=== PATIENT | female | born 1990 | race Caucasian/White ===

== ENCOUNTER → 2020-05-06 | Outpatient (CLI) | payer OTHER ==
[2020-05-06 17:11] LABS: HCG, SERUM QUANTITATIVE < 1.0 MIU/ML
[2020-05-06 17:35] LABS: HCG, SERUM QUALITATIVE NEGATIVE (NEGATIVE)
== END ==
LOC: M LAB 16:19
PROVIDERS: ATTEND Nurse Practitioner Adult Health
DX: N91.2 Amenorrhea, unspecified (principal)

== ENCOUNTER 2020-05-14 11:00 | Emergency (ER) | payer OTHER ==
[~2020-05-14] VITALS: Ht 160 cm; Wt 76.4 kg
[2020-05-14] MEDS ORDERED: METR-265 PO (11:19)
[2020-05-14 11:45] LABS: BASO % 0.4 % (0.0-1.0); EOS # 0.2 10^3/uL (0.0-0.5); EOS % 1.6 % (0.0-3.0); HEMATOCRIT 42.1 % (36.0-47.0); HEMOGLOBIN 14.1 g/dl (12.0-15.5); LYMPH # 1.6 10^3/uL (1.5-5.0); LYMPH % 15.5 % (24.0-44.0); MEAN CORPUSCULAR HEMOGLOBIN 30.2 pg (27.0-33.0); MEAN CORPUSCULAR HGB CONC 33.5 g/dl (32.0-36.5); MEAN CORPUSCULAR VOLUME 90.1 fl (80.0-96.0); MONO # 0.6 10^3/uL (0.0-0.8); MONO % 5.5 % (0.0-5.0); NEUTROPHILS # 7.6 10^3/uL (1.5-8.5); NEUTROPHILS % 76.6 % (36.0-66.0); PLATELET COUNT, AUTOMATED 303 10^3/uL (150-450); RED BLOOD COUNT 4.67 10^6/uL (4.00-5.40)
[2020-05-14] MEDS ORDERED: NS 1,000 ML IV ONE ×2 (12:00)
[2020-05-14 12:14] LABS: ALBUMIN 3.7 GM/DL (3.2-5.2); ALT/SGPT 27 U/L (12-78); BILIRUBIN,DIRECT < 0.1 MG/DL (0.0-0.2); BILIRUBIN,TOTAL 0.5 MG/DL (0.2-1.0); LIPASE 73 U/L (73-393); TOTAL PROTEIN 6.9 GM/DL (6.4-8.2)
[2020-05-14] MEDS ORDERED: ISOVUE-370 76% 100ML VIAL As Ordered ONE (12:21)
--- NOTE | 2020-05-14 13:00 | REP ---
CT abdomen/pelvis: 05/14/2020. Indication: Abdominal pain. Diarrhea. Technique: Axial images of the abdomen/pelvis were performed following IV iodinated contrast administration with coronal and sagittal reconstructions provided. Comparison: None. Findings: Follow-up thickening is noted within the colon particularly involving the cecum. No intraperitoneal fluid collections are present. There is no evidence of free intraperitoneal air. No significant vascular abnormalities are detected. The kidneys, liver and spleen are unremarkable. The visualized lungs are clear. Impression: Findings most consistent with colitis/pseudomembranous colitis. Please correlate clinically. Electronically Signed by Teofilo Van DO 05/14/2020 12:52 P
[2020-05-14] MEDS ORDERED: VANC125C3 PO (13:25)
[2020-05-14 13:35] VITALS: BP 123/86
[2020-05-14 17:12] LABS: CLOSTRIDIUM DIFFICILE PCR NEGATIVE (NEGATIVE)
== END 2020-05-14 13:43 | disposition home or self-care (01) ==
LOC: M ED 11:00
DX: A04.72 Enterocolitis due to Clostridium difficile, not specified as recurrent (principal); Z79.2 Long term (current) use of antibiotics; Z87.440 Personal history of urinary (tract) infections
CPT/HCPCS: 74177; 80047; 80076; 81001; 83690; 84702; 85025; 87086; 87493; 96360; 96361; 99284; Q9967

== ENCOUNTER → 2020-09-07 | Outpatient (CLI) | payer OTHER ==
[~2020-09-07] MED LIST: METR-265 PO; VANC125C3 PO
[2020-09-07 10:00] LABS: BASO % 0.5 % (0.0-1.0); EOS # 0.1 10^3/uL (0.0-0.5); HEMATOCRIT 40.2 % (36.0-47.0); LYMPH # 1.3 10^3/uL (1.5-5.0); LYMPH % 22.3 % (24.0-44.0); MEAN CORPUSCULAR HEMOGLOBIN 29.9 pg (27.0-33.0); MEAN CORPUSCULAR HGB CONC 32.3 g/dl (32.0-36.5); MEAN CORPUSCULAR VOLUME 92.4 fl (80.0-96.0); MONO # 0.3 10^3/uL (0.0-0.8); MONO % 5.2 % (0.0-5.0); NEUTROPHILS # 4.1 10^3/uL (1.5-8.5); NEUTROPHILS % 70.8 % (36.0-66.0); PLATELET COUNT, AUTOMATED 270 10^3/uL (150-450); RED BLOOD COUNT 4.35 10^6/uL (4.00-5.40); WHITE BLOOD COUNT 5.7 10^3/uL (4.0-10.0)
[2020-09-07 10:54] LABS: ALBUMIN 3.8 GM/DL (3.2-5.2); ALT/SGPT 23 U/L (12-78); BILIRUBIN,TOTAL 0.4 MG/DL (0.2-1.0); BLOOD UREA NITROGEN 16 MG/DL (7-18); CALCIUM LEVEL 8.8 MG/DL (8.5-10.1); CARBON DIOXIDE LEVEL 25 MEQ/L (21-32); CHLORIDE LEVEL 108 MEQ/L (98-107); CREATININE FOR GFR 0.71 MG/DL (0.55-1.30); FERRITIN 9 NG/ML (8-252); GLOMERULAR FILTRATION RATE > 60.0 (>60); GLUCOSE, FASTING 85 MG/DL (70-100); IRON (FE) 46 UG/DL (50-170); PERCENT SATURATION 13.9 % (13.2-45.0); POTASSIUM SERUM 4.7 MEQ/L (3.5-5.1); SODIUM LEVEL 139 MEQ/L (136-145); TOTAL IRON BINDING CAPACITY 332 UG/DL (250-450); TOTAL PROTEIN 7.4 GM/DL (6.4-8.2)
== END ==
LOC: M LAB 07:41
PROVIDERS: ATTEND Physician Assistant
DX: N97.9 Female infertility, unspecified (principal)

== ENCOUNTER → 2020-09-20 | Outpatient (CLI) | payer OTHER ==
--- NOTE | 2020-09-20 13:57 | REP ---
INDICATION: BREAK THROUGH BLEEDING, INFERTILITY. COMPARISON: None. TECHNIQUE: Transabdominal and transvaginal scanning were performed. FINDINGS: Uterine dimensions are normal at 9.0 x 3.9 x 4.7 cm. Endometrial echo is 6 mm thick and centrally placed. No free fluid is seen in the cul-de-sac. The bladder measures 4.9 x 6.8 x 8.5 cm. The right ovary has dimensions of 2.4 x 2.0 x 2.1 cm. The left ovary dimensions are normal as well at 3.8 x 2.2 x 2.8 cm. . The cervix appears somewhat bulky. IMPRESSION: Somewhat bulky appearing cervix. Otherwise negative pelvic ultrasound. <Electronically signed by Scooter Fisher > 09/20/20 [id number]
== END ==
LOC: M RAD 13:00
PROVIDERS: ATTEND Physician Assistant
DX: N97.9 Female infertility, unspecified (principal)

== ENCOUNTER → 2020-10-03 | Outpatient (CLI) | payer OTHER ==
[2020-10-03 08:49] LABS: BLOOD UREA NITROGEN 15 MG/DL (7-18); CALCIUM LEVEL 8.6 MG/DL (8.5-10.1); CARBON DIOXIDE LEVEL 24 MEQ/L (21-32); CHLORIDE LEVEL 109 MEQ/L (98-107); CHOLESTEROL LEVEL 211 MG/DL (<200); CHOLESTEROL RISK RATIO 3.907 (<5); CREATININE FOR GFR 0.77 MG/DL (0.55-1.30); GLOMERULAR FILTRATION RATE > 60.0 (>60); GLUCOSE, FASTING 90 MG/DL (70-100); GLUCOSE,RANDOM 90 MG/DL (LESS THAN 200); HDL CHOLESTEROL 54 MG/DL (>40); LDL CHOLESTEROL 142 MG/DL (<100); NON-HDL-C 157 MG/DL; POTASSIUM SERUM 4.4 MEQ/L (3.5-5.1); SODIUM LEVEL 139 MEQ/L (136-145); TRIGLYCERIDES LEVEL 76 MG/DL (<150); URIC ACID 4.1 MG/DL (2.6-6.0)
[2020-10-03 10:28] LABS: HEMOGLOBIN A1c 5.1 %
[2020-10-03 10:53] LABS: LUTEINIZING HORMONE 11.8 mIU/mL; TESTOSTERONE 20 NG/DL (14-76)
[2020-10-03 10:56] LABS: FOLLICLE STIMULATING HORMONE 3.1 mIU/mL
[2020-10-08 13:07] LABS: INSULIN LEVEL 9.6 uIU/mL (2.6-24.9)
== END ==
LOC: M LAB 07:29
PROVIDERS: ATTEND Obstetrics & Gynecology
DX: N97.9 Female infertility, unspecified (principal)

== ENCOUNTER → 2020-10-26 | Outpatient (REF) | payer OTHER | LOC: M LAB REF 17:18 | PROVIDERS: ATTEND Physician Assistant | DX: N39.0 Urinary tract infection, site not specified (principal) ==

== ENCOUNTER → 2021-03-22 | Outpatient (CLI) | payer OTHER ==
[2021-03-22 14:51] LABS: BASO # 0.1 10^3/uL (0.0-0.2); BASO % 0.7 % (0.0-1.0); EOS # 0.1 10^3/uL (0.0-0.5); EOS % 1.5 % (0.0-3.0); HEMATOCRIT 40.7 % (36.0-47.0); HEMOGLOBIN 13.5 g/dl (12.0-15.5); LYMPH # 2.3 10^3/uL (1.5-5.0); LYMPH % 31.4 % (24.0-44.0); MEAN CORPUSCULAR HEMOGLOBIN 30.1 pg (27.0-33.0); MEAN CORPUSCULAR HGB CONC 33.2 g/dl (32.0-36.5); MEAN CORPUSCULAR VOLUME 90.8 fl (80.0-96.0); MONO # 0.5 10^3/uL (0.0-0.8); NEUTROPHILS # 4.3 10^3/uL (1.5-8.5); NEUTROPHILS % 58.8 % (36.0-66.0); PLATELET COUNT, AUTOMATED 274 10^3/uL (150-450); RED BLOOD COUNT 4.48 10^6/uL (4.00-5.40); WHITE BLOOD COUNT 7.3 10^3/uL (4.0-10.0)
--- NOTE | 2021-03-22 15:23 | REP ---
INDICATION: PREG, POSSIBLE INCOMPLETE MISCARRIAGE, LAB 1ST THEN US COMPARISON: None. TECHNIQUE: Transabdominal and transvaginal 1st trimester obstetrical ultrasound with color Doppler evaluation. FINDINGS: Normal anteverted uterus measures 9.2 x 3.6 x 5.9 cm. The endometrial complex measures 3.4 mm thickness without decidual reaction or intrauterine . The bilateral ovaries are normal in appearance and vascularity without torsion. Right ovary measures 3.8 x 2.4 x 2.4 cm (RI 0.66). Left ovary measures 3.7 x 2.2 x 3.0 cm (RI 0.60). No pelvic fluid or adnexal mass lesion. IMPRESSION: No evidence for intrauterine . Normal appearance to the uterus and bilateral maternal ovaries. Consider correlation with serial HCG levels and repeat ultrasound as necessary. <Electronically signed by Chaparro Johnson > 03/22/21 [id number]
== END ==
LOC: M RAD 14:23
PROVIDERS: ATTEND Physician Assistant
DX: O03.39 Incomplete spontaneous abortion with other complications (principal)

== ENCOUNTER → 2023-06-24 | Outpatient (REF) | payer OTHER | LOC: M SFHCWAGY 13:21 | PROVIDERS: ATTEND Nurse Practitioner Family | DX: Z12.4 Encounter for screening for malignant neoplasm of cervix (principal) | CPT/HCPCS: 87624; G0123 ==

== ENCOUNTER → 2023-07-03 | Outpatient (CLI) | payer BC, OTHER ==
[2023-07-03 08:09] LABS: BASO # 0.1 10^3/uL (0.0-0.2); BASO % 0.7 % (0.0-1.0); EOS # 0.1 10^3/uL (0.0-0.5); EOS % 1.5 % (0.0-3.0); HEMATOCRIT 43.5 % (36.0-47.0); HEMOGLOBIN 14.1 g/dl (12.0-15.5); LYMPH # 1.7 10^3/uL (1.5-5.0); MEAN CORPUSCULAR HEMOGLOBIN 29.7 pg (27.0-33.0); MEAN CORPUSCULAR HGB CONC 32.4 g/dl (32.0-36.5); MEAN CORPUSCULAR VOLUME 91.6 fl (80.0-96.0); MONO # 0.4 10^3/uL (0.0-0.8); MONO % 5.6 % (2.0-8.0); NEUTROPHILS % 68.7 % (36.0-66.0); PLATELET COUNT, AUTOMATED 296 10^3/uL (150-450); RED BLOOD COUNT 4.75 10^6/uL (4.00-5.40); WHITE BLOOD COUNT 7.3 10^3/uL (4.0-10.0)
[2023-07-03 08:24] LABS: HEMOGLOBIN A1c 5.4 % (4.0-6.0)
[2023-07-03 08:42] LABS: THYROID STIMULATING HORMONE 4.375 uIU/ML (0.55-4.78); TOTAL 25(OH) VITAMIN D 28.8 NG/ML (20.0-100.0)
[2023-07-03 08:43] LABS: FOLATE 17.7 NG/ML (>5.4)
[2023-07-03 08:44] LABS: ALBUMIN 3.8 G/DL (3.2-5.2); ALKALINE PHOSPHATASE 90 U/L (46-116); ALT/SGPT 23 U/L (7.0-40); AST/SGOT 14 U/L (<34); BILIRUBIN,TOTAL 0.7 MG/DL (0.3-1.2); BLOOD UREA NITROGEN 14 MG/DL (9-23); CALCIUM LEVEL 9.1 MG/DL (8.5-10.1); CARBON DIOXIDE LEVEL 25 MMOL/L (20-31); CHLORIDE LEVEL 106 MMOL/L (98-107); CHOLESTEROL LEVEL 240 MG/DL (<200); CHOLESTEROL RISK RATIO 4.69 (<5); CREATININE FOR GFR 0.74 MG/DL (0.55-1.30); FOLLICLE STIMULATING HORMONE 2.6 mIU/ML; GLOMERULAR FILTRATION RATE > 60.0 (>60); GLUCOSE, FASTING 92 MG/DL (60-100); HDL CHOLESTEROL 51.1 MG/DL (>40); IRON (FE) 96 UG/DL (50-170); LDL CHOLESTEROL 170.1 MG/DL (<100); NON-HDL-C 188.9 MG/DL; PERCENT SATURATION 31.8 % (13.2-45.0); POTASSIUM SERUM 4.4 MMOL/L (3.5-5.1); SODIUM LEVEL 139 MMOL/L (136-145); TOTAL IRON BINDING CAPACITY 302 UG/DL (250-425); TRIGLYCERIDES LEVEL 94 MG/DL (<150)
[2023-07-03 08:45] LABS: FERRITIN 28.3 NG/ML (7.3-270.7); FREE T4 0.99 NG/DL (0.89-1.76); LUTEINIZING HORMONE 5.4 mIU/ML
[2023-07-03 08:46] LABS: VITAMIN B12 LEVEL 411 PG/ML (211-911)
== END ==
LOC: M LAB 07:31
PROVIDERS: ATTEND Physician Assistant
DX: Z13.29 Encounter for screening for other suspected endocrine disorder (principal); Z13.220 Encounter for screening for lipoid disorders

== ENCOUNTER → 2024-02-17 | Outpatient (CLI) | payer BC ==
[2024-02-17 10:13] LABS: BASO # 0.1 10^3/uL (0.0-0.2); BASO % 1.3 % (0.0-1.0); EOS # 0.1 10^3/uL (0.0-0.5); EOS % 1.3 % (0.0-3.0); HEMATOCRIT 41.1 % (36.0-47.0); HEMOGLOBIN 13.6 g/dl (12.0-15.5); LYMPH # 1.6 10^3/uL (1.5-5.0); LYMPH % 31.1 % (24.0-44.0); MEAN CORPUSCULAR HEMOGLOBIN 30.2 pg (27.0-33.0); MEAN CORPUSCULAR HGB CONC 33.1 g/dl (32.0-36.5); MEAN CORPUSCULAR VOLUME 91.1 fl (80.0-96.0); MONO # 0.4 10^3/uL (0.0-0.8); MONO % 6.6 % (2.0-8.0); NEUTROPHILS # 3.1 10^3/uL (1.5-8.5); NEUTROPHILS % 59.3 % (36.0-66.0); PLATELET COUNT, AUTOMATED 286 10^3/uL (150-450); RED BLOOD COUNT 4.51 10^6/uL (4.00-5.40); WHITE BLOOD COUNT 5.3 10^3/uL (4.0-10.0)
[2024-02-17 10:47] LABS: ALBUMIN 4.1 G/DL (3.2-5.2); ALKALINE PHOSPHATASE 113 U/L (46-116); ALT/SGPT 28 U/L (7.0-40); AST/SGOT 17 U/L (<34); BILIRUBIN,TOTAL 0.4 MG/DL (0.3-1.2); BLOOD UREA NITROGEN 14 MG/DL (9-23); CALCIUM LEVEL 9.5 MG/DL (8.5-10.1); CARBON DIOXIDE LEVEL 27 MMOL/L (20-31); CHLORIDE LEVEL 110 MMOL/L (98-107); CREATININE FOR GFR 0.73 MG/DL (0.55-1.30); GLOMERULAR FILTRATION RATE > 60.0 (>60); GLUCOSE, FASTING 100 MG/DL (60-100); IRON (FE) 52 UG/DL (50-170); PERCENT SATURATION 16.9 % (13.2-45.0); POTASSIUM SERUM 4.9 MMOL/L (3.5-5.1); SODIUM LEVEL 140 MMOL/L (136-145); TOTAL IRON BINDING CAPACITY 308 UG/DL (250-425)
[2024-02-17 10:48] LABS: FREE T4 1.13 NG/DL (0.89-1.76); THYROID STIMULATING HORMONE 1.943 uIU/ML (0.55-4.78)
[2024-02-17 10:49] LABS: FERRITIN 12.8 NG/ML (7.3-270.7)
[2024-02-17 11:05] LABS: HEMOGLOBIN A1c 5.3 % (4.0-6.0)
== END ==
LOC: M PLALAB 08:19
PROVIDERS: ATTEND Nurse Practitioner Family
DX: N92.0 Excessive and frequent menstruation with regular cycle (principal)

== ENCOUNTER → 2024-02-24 | Outpatient (CLI) | payer BC | LOC: M RAD 12:25 | PROVIDERS: ATTEND Nurse Practitioner Family | DX: N92.0 Excessive and frequent menstruation with regular cycle (principal) ==

== ENCOUNTER 2024-05-16 10:18 | Emergency (ER) | payer OTHER, BC ==
[~2024-05-16] VITALS: Ht 160 cm; Wt 87.7 kg
[2024-05-16 10:54] LABS: BASO % 0.5 % (0.0-1.0); EOS # 0.1 10^3/uL (0.0-0.5); EOS % 0.9 % (0.0-3.0); HEMATOCRIT 40.9 % (36.0-47.0); HEMOGLOBIN 13.8 g/dl (12.0-15.5); LYMPH # 1.5 10^3/uL (1.5-5.0); LYMPH % 18.5 % (24.0-44.0); MEAN CORPUSCULAR HEMOGLOBIN 30.4 pg (27.0-33.0); MEAN CORPUSCULAR HGB CONC 33.7 g/dl (32.0-36.5); MEAN CORPUSCULAR VOLUME 90.1 fl (80.0-96.0); MONO # 0.5 10^3/uL (0.0-0.8); MONO % 5.6 % (2.0-8.0); NEUTROPHILS # 6.1 10^3/uL (1.5-8.5); PLATELET COUNT, AUTOMATED 282 10^3/uL (150-450); RED BLOOD COUNT 4.54 10^6/uL (4.00-5.40); WHITE BLOOD COUNT 8.2 10^3/uL (4.0-10.0)
[2024-05-16 11:13] LABS: APPEARANCE, URINE CLEAR (CLEAR); BACTERIA, URINE AUTO 1+ (NEGATIVE); BILIRUBIN, URINE AUTO NEGATIVE (NEGATIVE); BLOOD, URINE BLOOD 3+ (NEGATIVE); COLOR, URINE STRAW (YELLOW); GLUCOSE, URINE (UA) AUTO NEGATIVE (NEGATIVE); KETONE, URINE AUTO NEGATIVE (NEGATIVE); LEUKOCYTE ESTERASE, URINE AUTO NEGATIVE (NEGATIVE); NITRITE, URINE AUTO NEGATIVE (NEGATIVE); PROTEIN, URINE AUTO NEGATIVE (NEGATIVE); RBC, URINE AUTO 19 /HPF (0-3); SPECIFIC GRAVITY URINE AUTO 1.003 (1.002-1.035); SQUAMOUS EPITHELIAL CELL UR AU 0 /HPF (0-6); UROBILINOGEN, URINE AUTO 0.2 mg/dL (0.0-2.0); WBC, URINE AUTO 1 /HPF (0-3)
[2024-05-16 11:18] LABS: BLOOD UREA NITROGEN 10 MG/DL (9-23); CARBON DIOXIDE LEVEL 25 MMOL/L (20-31); CHLORIDE LEVEL 106 MMOL/L (98-107); CREATININE FOR GFR 0.63 MG/DL (0.55-1.30); GLOMERULAR FILTRATION RATE > 60.0 (>60); GLUCOSE, FASTING 96 MG/DL (60-100); POTASSIUM SERUM 4.7 MMOL/L (3.5-5.1); SODIUM LEVEL 138 MMOL/L (136-145)
[2024-05-16 11:31] LABS: HCG, SERUM QUANTITATIVE 55082.9 MIU/ML (<4.2)
[2024-05-16 12:35] VITALS: BP 118/75; TEMP 97.7; O2SAT 100
== END 2024-05-16 12:39 | disposition left against medical advice (07) ==
LOC: M ED 10:18
DX: O20.8 Other hemorrhage in early pregnancy (principal); Z53.9 Procedure and treatment not carried out, unspecified reason; Z3A.08 8 weeks gestation of pregnancy; Z88.8 Allergy status to other drugs, medicaments and biological substances

== ENCOUNTER → 2024-11-30 | Outpatient (REF) | payer BC, OTHER | LOC: M SFHCWAGY 12:15 | PROVIDERS: ATTEND Obstetrics & Gynecology | DX: O24.415 Gestational diabetes mellitus in pregnancy, controlled by oral hypoglycemic drugs (principal); O34.211 Maternal care for low transverse scar from previous cesarean delivery; O09.293 Supervision of pregnancy with other poor reproductive or obstetric history, third trimester; Z3A.36 36 weeks gestation of pregnancy ==

== ENCOUNTER 2024-12-17 05:04 | Inpatient (IN) | payer BC, OTHER ==
[2024-12-17] VITALS (10 sets, daily range): BP systolic 110–135; BP diastolic 55–74; TEMP 96.8; O2SAT 96–100
[~2024-12-17] VITALS: Ht 160 cm; Wt 94.5 kg
[~2024-12-17 05:04] MED LIST changes: +ACET32TAB PO; +ASPI81TA26 PO; +METF500T13 PO
[2024-12-17] MEDS ORDERED: HOME MED LIST COMPLETE! XX SCH (05:20)
[2024-12-17] MEDS: LACTATED RINGER'S 1000 ML IV STA (05:52)
[2024-12-17 06:23] LABS: HEMATOCRIT 29.8 % (36.0-47.0); HEMOGLOBIN 9.4 g/dl (12.0-15.5); MEAN CORPUSCULAR HGB CONC 31.5 g/dl (32.0-36.5); MEAN CORPUSCULAR VOLUME 82.3 fl (80.0-96.0); PLATELET COUNT, AUTOMATED 244 10^3/uL (150-450); RED BLOOD COUNT 3.62 10^6/uL (4.00-5.40); WHITE BLOOD COUNT 9.5 10^3/uL (4.0-10.0)
[2024-12-17] MEDS: LR 1,000 ML IV SCH ×2 (06:45→08:55)
[2024-12-17] MEDS: ceFAZolin SOD 2 GM in IV 1 EA IV ONE (07:18)
[2024-12-17] MEDS: BICITRA 30ML SOLN UDC PO ONE (07:18)
[2024-12-17] MEDS ORDERED: PHENYLephrine 500MCG 5ML (100MCG/ML) SYRINGE As Ordered ONE (07:31)
[2024-12-17] MEDS ORDERED: ACETAMINOPHEN 1000MG/100ML IV BAG As Ordered ONE (07:31)
[2024-12-17] MEDS ORDERED: KETOROLAC 60MG 2ML VIAL As Ordered ONE (07:31)
[2024-12-17] MEDS ORDERED: ONDANSETRON 4MG 2ML VIAL As Ordered ONE (07:31)
[2024-12-17] MEDS ORDERED: ePHEDrine SULFATE 25 MG/5 ML(5MG/ML) SYRINGE As Ordered ONE (07:31)
[2024-12-17] MEDS ORDERED: MORPHINE PRES-FREE INJ 10 MG/10 ML VIAL As Ordered ONE (07:31)
[2024-12-17] MEDS ORDERED: OXYTOCIN 30UNITS IN 0.9% NaCl 500ML IV BAG As Ordered ONE (07:31)
[2024-12-17] MEDS ORDERED: dexmedeTOMIDine (4MCG/ML)200MCG/50ML BTL (PRECEDEX) As Ordered ONE (08:16)
[2024-12-17] MEDS ORDERED: KETAMINE HCL 200MG/20ML VIAL As Ordered ONE (08:40)
[2024-12-17] MEDS ORDERED: MIDAZOLAM INJ 2MG/2ML VIAL As Ordered ONE (08:40)
[2024-12-17] MEDS ORDERED: ANUSOL HC CREAM 30GM TOP PRN (08:55)
[2024-12-17] MEDS ORDERED: MORPHINE 4 MG/ML 1ML VIAL IV PRN (08:55)
[2024-12-17] MEDS ORDERED: CALCIUM CARBONATE 500 MG CHEW U/D PO PRN (08:55)
[2024-12-17] MEDS ORDERED: ACETAMINOPHEN 500 MG TAB PO PRN (08:55)
[2024-12-17] MEDS ORDERED: PERCOCET 5MG/325MG TAB PO PRN (08:55)
[2024-12-17] MEDS ORDERED: METHYLERGONOVINE MALEATE 0.2MG/ML 1ML VIAL IM PRN (08:55)
[2024-12-17] MEDS ORDERED: RHOGAM 300MCG (1500IU) INJ IM SCH (08:55)
[2024-12-17] MEDS ORDERED: fentaNYL 100 MCG/2 ML INJECTION IV PRN (09:00)
[2024-12-17] MEDS ORDERED: MEPERIDINE 25 MG/ML 1ML VIAL IV PRN (09:00)
[2024-12-17] MEDS ORDERED: ONDANSETRON 4MG 2ML VIAL IV PRN (09:00)
[2024-12-17] MEDS: PRENATAL VITAMINS CHEWABLE TABLET PO SCH (09:00)
[2024-12-17] MEDS ORDERED: oxyCODONE 5MG TAB PO PRN (09:00)
[2024-12-17] MEDS ORDERED: PERCOCET PO (09:02)
[2024-12-17] MEDS ORDERED: COLA100C5 PO (09:02)
[2024-12-17] MEDS ORDERED: IBUP80TA PO (09:02)
[2024-12-17 09:06] LABS: CORD GAS ABE A -2.6; CORD GAS HCO3 A 23.5 MMOL/L; CORD GAS O2 SAT A 69.8 %; CORD GAS PCO2 A 44.8 mmHg; CORD GAS PH A 7.337 UNITS; CORD GAS PO2 A 30.9 mmHg; CORD GAS SBC A 21.6 MMOL/L; CORD GAS TCO2 A 24.8 MMOL/L
[2024-12-17] MEDS ORDERED: HYDROMORPHONE HCL 0.5 MG/ 0.5 ML SYRINGE As Ordered ONE (09:06)
[2024-12-17 09:07] LABS: CORD GAS ABE V -4.1; CORD GAS HCO3 V 21.4 MMOL/L; CORD GAS O2 SAT V 64.3 %; CORD GAS PCO2 V 40.8 mmHg; CORD GAS PH V 7.338 UNITS; CORD GAS PO2 V 27.5 mmHg; CORD GAS SBC V 20.3 MMOL/L; CORD GAS TCO2 V 22.7 MMOL/L
[2024-12-17] MEDS: HYDROMORPHONE HCL 0.5 MG/ 0.5 ML SYRINGE IV PRN (09:07)
[2024-12-17] MEDS: OXYTOCIN DRIP 30 UNITS in IV 1 EA IV SCH (09:09)
[2024-12-17 09:32] LABS: HEMOGLOBIN 8.6 g/dl (12.0-15.5); MEAN CORPUSCULAR HEMOGLOBIN 26.6 pg (27.0-33.0); MEAN CORPUSCULAR HGB CONC 31.9 g/dl (32.0-36.5); MEAN CORPUSCULAR VOLUME 83.6 fl (80.0-96.0); PLATELET COUNT, AUTOMATED 202 10^3/uL (150-450); RED BLOOD COUNT 3.23 10^6/uL (4.00-5.40); WHITE BLOOD COUNT 8.3 10^3/uL (4.0-10.0)
[2024-12-17] MEDS: KETOROLAC 30 MG/ML 1ML VIAL IV SCH (14:51)
[2024-12-17 19:16] LABS: HEPATITIS C VIRUS ABY INDEX < 0.02 INDEX (<0.8)
[2024-12-17] MEDS: DOCUSATE SODIUM 100MG CAPSULE PO SCH (21:09)
[2024-12-18 02:00] VITALS: BP 112/37; O2SAT 98
[2024-12-18] MEDS: SIMETHICONE 80MG CHEW TAB PO PRN (06:24)
[2024-12-18 06:29] VITALS: BP 103/53; O2SAT 98
[2024-12-18 07:45] LABS: HEMATOCRIT 24.8 % (36.0-47.0); HEMOGLOBIN 7.8 g/dl (12.0-15.5); MEAN CORPUSCULAR HEMOGLOBIN 26.2 pg (27.0-33.0); MEAN CORPUSCULAR HGB CONC 31.5 g/dl (32.0-36.5); MEAN CORPUSCULAR VOLUME 83.2 fl (80.0-96.0); PLATELET COUNT, AUTOMATED 209 10^3/uL (150-450); RED BLOOD COUNT 2.98 10^6/uL (4.00-5.40); WHITE BLOOD COUNT 12.4 10^3/uL (4.0-10.0)
[2024-12-18 10:00] VITALS: BP 121/60; O2SAT 98
[2024-12-18] MEDS: IBUPROFEN 800 MG TAB PO SCH (10:52)
[2024-12-18 14:00] VITALS: BP 128/67; O2SAT 99
[2024-12-18] MEDS: PERCOCET 5MG/325MG TAB PO PRN (17:02)
[2024-12-18 18:00] VITALS: BP 129/74; O2SAT 97
[2024-12-18 22:00] VITALS: BP 119/59; O2SAT 95
[2024-12-19 02:00] VITALS: BP 125/67; O2SAT 97
[2024-12-19 06:00] VITALS: BP 129/60; O2SAT 97
[2024-12-19] MEDS: MEASLES,MUMPS,RUBELLA VACCINE INJ (MMR-II) SC.IMMUN ONE (09:00)
== END 2024-12-19 11:25 | disposition home or self-care (01) | DRG 540 ==
LOC: M LDI 05:04 → M OBS 10:45
PROVIDERS: ADMIT Obstetrics & Gynecology; ATTEND Obstetrics & Gynecology
PROC: 10D00Z1 Extraction of Products of Conception, Low, Open Approach (ICD-10-PCS; principal; 2024-12-17 07:30)
DX: O24.425 Gestational diabetes mellitus in childbirth, controlled by oral hypoglycemic drugs (principal); Z37.0 Single live birth; Z3A.39 39 weeks gestation of pregnancy

== ENCOUNTER → 2025-02-12 | Outpatient (CLI) | payer BC, OTHER ==
[~2025-02-12] MED LIST changes: +COLA100C5 PO; +IBUP80TA PO; +PERCOCET PO; +VANC125C13 PO; -VANC125C3 PO
== END ==
LOC: M RAD 06:54
PROVIDERS: ATTEND Obstetrics & Gynecology
DX: G56.01 Carpal tunnel syndrome, right upper limb (principal)